=== PATIENT | female | born 2000 | race Hispanic/Latino ===

== ENCOUNTER 2019-02-08 13:40 | Emergency (ER) | payer OTHER, SELFPAY ==
[2019-02-08 14:04] LABS: #Eosinphils 0.1 thou/uL (0.0-0.7); #Lymphocytes 1.6 thou/uL (1.20-3.40); #Monocytes 0.5 thou/uL (0.11-0.59); #Neutrophils 6.4 thou/uL (1.40-6.50); %Basophils 0.2 % (0.0-1.0); %Eosinophils 0.8 % (0.0-10.0); %Lymphocytes 18.3 % (28.0-48.0); %Monocytes 5.9 % (0.0-4.0); %Neutrophils 74.9 % (31.0-61.0); Hemoglobin 13.2 g/dL (12.0-16.0); Mean Corpuscular HGB CONC 33.7 g/dL (32.0-36.0); Mean Corpuscular Hemoglobin 30.3 pg (25.0-35.0); Mean Platelet Volume 9.8 fL (7.4-10.4); Platelet Count 220 thou/uL (130-400); RBC Distribution Width 11.5 % (11.5-14.5); Red Blood Cell (RBC) Count 4.35 mill/uL (4.00-5.20); White Blood Cell (WBC) Count 8.5 thou/uL (4.8-10.8)
[2019-02-08 14:24] LABS: Bilirubin Negative (Negative); Blood, Urine Moderate (Negative); Clarity CLOUDY (Clear); Glucose, Urine (Dipstick) Negative (Negative); Leukocyte Negative (Negative); Nitrite Negative (Negative); Protein, Urine (Dipstick) Negative (Neg-Trace); Specific Gravity, Urine 1.022 (1.002-1.036)
[2019-02-08 14:28] LABS: Pathc Cast-AUWi Flag 6.12 (0-2.49); Yeast-AUWi Flag 36.5 (0-25.0)
[2019-02-08 14:41] LABS: Bacteria/HPF 2+ HPF (None Seen); Hyaline Casts/LPF 0-3 HYALINE CAST LPF (0-3 Hyaline); Manual Microscopic Reviewed? No Path Casts Seen; Renal Epithelial None Seen HPF (0-3); Transitional Epithelial NONE SEEN HPF (0-3); Yeast-All Forms None Seen HPF (None Seen)
--- NOTE | 2019-02-08 15:57 | ULT ---
Exam: Pelvic ultrasound HISTORY: Vaginal bleeding for 5 days. Abdominal cramping. COMPARISON: None TECHNIQUE: Multiple grayscale and color Doppler images were obtained in a transabdominal pelvic ultra sound. Spectral analysis of the Doppler waveforms of the ovaries were performed. FINDINGS: CERVIX: Unremarkable UTERUS: Fluid collection is seen within the endometrial canal which contains a pole. Cardiac Do ppler demonstrates heart tones with a heart rate of 162 bpm. There is a curvilinear heterogeneous area seen in a subchorionic location in the lower uterine segment measuring 4.1 cm x 2. 8 cm x 0.9 cm suggesting a subchorionic hemorrhage. The crown-rump length measures 7.71 cm corresponding to gestational age by ultrasound of 13 weeks and 5 days with AILYN on 08/11/2019. Gestati onal age by last menstrual period is 13 weeks. No free fluid is present. RIGHT OVARY: Normal flow, without focal mass. LEFT OVARY:Not visualized. IMPRESSION: 1. Subchorionic hemorrhage with largest measurement of 4 cm. 2. Single intrauterine gestation with heart tones documented. Gestational age by measurement of the crown-rump length is 13 weeks and 5 days with AILYN on 08/11/2019. 3. Above findings discussed with SEPIDEH Adrian in the emergency department on 02/08/2019 1549 hour s.
== END 2019-02-08 16:11 | disposition home or self-care (01) ==
LOC: ERS 13:40
DX: O20.9 Hemorrhage in early pregnancy, unspecified (principal); O20.8 Other hemorrhage in early pregnancy; Z3A.13 13 weeks gestation of pregnancy
CPT/HCPCS: 36415; 76856; 81003; 81015; 84702; 85025; 86900; 86901; 93976

== ENCOUNTER 2019-02-24 19:56 | Emergency (ER) | payer OTHER ==
[2019-02-24 20:36] LABS: #Eosinphils 0.1 thou/uL (0.0-0.7); #Lymphocytes 1.8 thou/uL (1.20-3.40); #Monocytes 0.5 thou/uL (0.11-0.59); #Neutrophils 7.4 thou/uL (1.40-6.50); %Basophils 0.3 % (0.0-1.0); %Eosinophils 0.6 % (0.0-10.0); %Lymphocytes 18.4 % (28.0-48.0); %Monocytes 5.1 % (0.0-4.0); %Neutrophils 75.6 % (31.0-61.0); Hemoglobin 12.8 g/dL (12.0-16.0); Mean Corpuscular Hemoglobin 30.7 pg (25.0-35.0); Mean Corpuscular Volume 90.4 fL (78.0-98.0); Mean Platelet Volume 9.6 fL (7.4-10.4); Platelet Count 211 thou/uL (130-400); RBC Distribution Width 11.9 % (11.5-14.5); Red Blood Cell (RBC) Count 4.16 mill/uL (4.00-5.20); White Blood Cell (WBC) Count 9.8 thou/uL (4.8-10.8)
--- NOTE | 2019-02-24 20:54 | ULT ---
OB ULTRASOUND: 02/24/19 INDICATION: Vaginal bleeding. Single viable intrauterine . Gestational age by ultrasound is 16 weeks, 1 day. BPD 16 week, 3 day HC 16 week, 1 day AC 16 week, 3 day FL 15 week, 6 day heart rate 157. Position: Variable. Placenta: Anterior. Amniotic fluid: Within normal range. IMPRESSION: 16 week, 1 day gestation by ultrasound. No abnormality identified. POS: [facility]
[2019-02-24 20:59] LABS: Anion Gap 13 mmol/L (10-20); BUN (Urea Nitrogen) 6 mg/dL (7.0-18.7); Calc. Creatinine Clearance 0 mL/min (70-130); Calcium 9.3 mg/dL (7.8-10.44); Carbon Dioxide 21 mmol/L (22-29); Chloride 105 mmol/L (98-107); Estimated GFR-MDRD Greater than 90; Glucose 74 mg/dL (70-105); Potassium 3.7 mmol/L (3.5-5.1); Sodium 135 mmol/L (136-145)
== END 2019-02-24 21:26 | disposition home or self-care (01) ==
LOC: ERS 19:56
DX: O20.0 Threatened abortion (principal); Z3A.16 16 weeks gestation of pregnancy
CPT/HCPCS: 36415; 76815; 80048; 84702; 85025; 86900; 86901; 99284

== ENCOUNTER 2019-03-29 12:58 | Outpatient (CLI) | payer OTHER ==
--- NOTE | 2019-03-29 14:36 | ULT ---
OB ULTRASOUND: 03/29/19 HISTORY: Intrauterine gestation. Evaluate anatomy, size and dates and cervical length. COMPARISON: 02/24/19. FINDINGS: There is a single intrauterine gestation in breech presentation. Cardiac Doppler demonstrates h eart tones with a heart of 146 beats per minute. The placenta is located anteriorly without aashish dence of placenta previa. There is a normal amount of amniotic fluid with an amniotic fluid index of 16.04 cm. The cervical length on transabdominal imaging measures approximately 3.24 cm in length. BIOMETRY MEASUREMENTS: Biparietal diameter 4.68 cm 20 weeks, 2 days Head circumference 18.1 cm 20 weeks, 4 days Abdominal circumference 15.02 cm 20 weeks, 2 days Femur length 3.45 cm 21 weeks, 0 days The estimated gestational age by ultrasound is 20 weeks and 4 days with an AILYN of 08/12/19. The gesta tional age by the last menstrual period is 21 weeks and 1 day. The estimated weight by ultrasound is 359 grams (13 oz). This represents the 17th percentile fo r weight. The cerebellum is not well imaged due to positioning of the fetus but is grossly within normal limits . The visualized portions of the spine, four chambered heart, stomach, bilateral kidneys, urin soto bladder, and three vessel cord are visualized and demonstrate a normal sonographic appearance. Co rd insertion is not well delineated due to positioning, although no gross abnormality in the ex pected region of the cord insertion is seen. No definite anomalies are seen on the provided hallie ges. IMPRESSION: 1. Breech presentation of the fetus. 2. Single intrauterine gestation with heart tones documented. Estimated gestational age by ultrasound is 20 weeks and 4 days with AILYN on 08/12/19. 3. Estimated weight by ultrasound is 359 grams (13 oz). 4. Amniotic fluid index measures 16.04 cm. POS: [facility]
== END 2019-03-29 12:59 | disposition home or self-care (01) ==
LOC: BICULT 12:58
PROVIDERS: ATTEND Family Medicine
DX: Z34.82 Encounter for supervision of other normal pregnancy, second trimester (principal); Z3A.20 20 weeks gestation of pregnancy; O32.1XX0 Maternal care for breech presentation, not applicable or unspecified
CPT/HCPCS: 76805

== ENCOUNTER 2019-07-28 05:33 | Inpatient (IN) | payer OTHER ==
[2019-07-28] MEDS ORDERED: NS / Oxytocin 40 units/1000ml 1,000 ML ONE (05:47)
[2019-07-28] MEDS ORDERED: Lidocaine 1% (PF) 30 ML VIAL ONE (05:48)
[2019-07-28] MEDS ORDERED: Oxytocin 10 UNITS/ML VIAL ONE (05:51)
[2019-07-28 06:15] VITALS: BMI 23.8
[2019-07-28] MEDS ORDERED: Misoprostol 200 MCG TAB PR PRN (06:43)
[2019-07-28] MEDS ORDERED: Promethazine HCl 25 MG/ML VIAL IM PRN (06:43)
[2019-07-28] MEDS ORDERED: Carboprost 250 MCG/ML AMP IM PRN (06:43)
[2019-07-28] MEDS ORDERED: NS / Oxytocin 40 units/1000ml 1,000 ML IV PRN (06:43)
[2019-07-28] MEDS ORDERED: Lidocaine 1% (PF) 30 ML VIAL SC PRN (06:43)
[2019-07-28] MEDS ORDERED: hydrALAZINE 20 MG/ML VIAL SLOW IVP PRN ×2 (06:43→07:13)
[2019-07-28] MEDS ORDERED: Ondansetron PF 4 MG/2 ML Vial IVP PRN (06:43)
[2019-07-28] MEDS ORDERED: Methylergonovine 0.2 MG/ML VIAL IM PRN (06:43)
[2019-07-28] MEDS ORDERED: Ibuprofen 800 MG TAB PO PRN (06:43)
[2019-07-28] MEDS ORDERED: Butorphanol Tartrate 1 MG/ML VIAL SLOW IVP PRN (06:43)
[2019-07-28] MEDS ORDERED: Diphenoxylate HCl/Atropine Tablet PO PRN (06:43)
[2019-07-28] MEDS ORDERED: HYDROcodone/Acetaminophen 5/325 mg Tablet PO PRN ×3 (06:43→07:13)
[2019-07-28] MEDS ORDERED: Lactated Ringer's 1,000 ML IV SCH (06:45)
[2019-07-28] MEDS ORDERED: Bisacodyl 10 MG SUPP PR PRN (07:13)
[2019-07-28] MEDS ORDERED: Adacel (T-DAP) 0.5 ML SYRINGE IM ONE (07:13)
[2019-07-28] MEDS ORDERED: Lanolin Ointment 7 GM TUBE TOP PRN (07:13)
[2019-07-28] MEDS ORDERED: Milk Of Magnesia 30 ML UDCUP PO PRN (07:13)
[2019-07-28] MEDS ORDERED: NS / Oxytocin 40 units/1000ml 1,000 ML IV SCH (07:13)
[2019-07-28 09:12] LABS: Hemoglobin 9.7 g/dL (12.0-16.0); Mean Corpuscular HGB CONC 32.7 g/dL (32.0-36.0); Mean Corpuscular Hemoglobin 24.7 pg (25.0-35.0); Mean Corpuscular Volume 75.6 fL (78.0-98.0); Mean Platelet Volume 10.5 fL (7.4-10.4); Platelet Count 163 thou/uL (130-400); RBC Distribution Width 15.8 % (11.5-14.5); White Blood Cell (WBC) Count 16.1 thou/uL (4.8-10.8)
[2019-07-28 09:50] LABS: Syphilis Antibody Nonreactive (Nonreactive); Syphilis Antibody Index 0.02 S/CO (<1.00 Non-Reactive)
[2019-07-28 09:51] LABS: Hep B Surf Ag Non-Reactive S/CO (NonReactive)
[2019-07-28] MEDS: Prenatal Vitamin 1 TAB PO SCH (12:24)
[2019-07-28] MEDS: Docusate Calcium (SURFAK) 240 MG CAP PO SCH ×2 (12:24→21:27)
[2019-07-28] MEDS: Ferrous Sulfate 325 MG TAB PO SCH ×2 (12:24→17:30)
[2019-07-28] MEDS: Ibuprofen 800 MG TAB PO SCH ×2 (15:11→21:27)
[2019-07-29] MEDS: Ibuprofen 800 MG TAB PO SCH ×2 (05:33→13:35)
[2019-07-29 06:01] LABS: Hemoglobin 9.9 g/dL (12.0-16.0); Mean Corpuscular HGB CONC 32.9 g/dL (32.0-36.0); Mean Corpuscular Hemoglobin 25.1 pg (25.0-35.0); Mean Corpuscular Volume 76.1 fL (78.0-98.0); Mean Platelet Volume 12.4 fL (7.4-10.4); Platelet Count 182 thou/uL (130-400); RBC Distribution Width 15.8 % (11.5-14.5); Red Blood Cell (RBC) Count 3.93 mill/uL (4.00-5.20); White Blood Cell (WBC) Count 10.6 thou/uL (4.8-10.8)
[2019-07-29] MEDS: Docusate Calcium (SURFAK) 240 MG CAP PO SCH (09:26)
[2019-07-29] MEDS: Ferrous Sulfate 325 MG TAB PO SCH (09:26)
[2019-07-29] MEDS: Prenatal Vitamin 1 TAB PO SCH (09:26)
[2019-07-29 11:20] VITALS: BP 121/80; TEMP 97.7
== END 2019-07-29 18:31 | disposition home or self-care (01) | DRG 807 ==
LOC: L&D/OP 05:33 → L&D 06:44 → 3SW 09:16
PROVIDERS: ADMIT Family Medicine; ATTEND Family Medicine
PROC: 10E0XZZ Delivery of Products of Conception, External Approach (ICD-10-PCS; principal; 2019-07-28)
DX: O76 Abnormality in fetal heart rate and rhythm complicating labor and delivery (principal); Z37.0 Single live birth; Z3A.38 38 weeks gestation of pregnancy
CPT/HCPCS: 36415; 85027; 86780; 86850; 86900; 86901; 87340; 99285; J2001; J2590

== ENCOUNTER 2020-08-30 23:15 | Inpatient (IN) | payer SELFPAY ==
[2020-08-31] MEDS ORDERED: Mag-Al 1200 mg/1200 mg/30 ML UDCUP ONE (00:04)
[2020-08-31] MEDS ORDERED: Lidocaine Viscous Sol 2% 15 ml UD Cup ONE (00:04)
[2020-08-31 00:19] LABS: MONO NEGATIVE CONTROL ZONE White (Negative) (White); MONO POSITIVE CONTROL Pink Line (Positive) (PINK/RED); Mononucleosis NEGATIVE (NEGATIVE)
[2020-08-31] MEDS ORDERED: Dextrose 5 % And 0.9 % NaCl 1,000 ML IV SCH (03:45)
[2020-08-31] MEDS ORDERED: Acetaminophen 325 MG TAB PO PRN (03:45)
[2020-08-31 04:06] VITALS: BMI 25.4
[2020-08-31] MEDS ORDERED: Ondansetron ODT 4 MG TAB PO PRN (04:06)
[2020-08-31] MEDS ORDERED: Ondansetron PF 4 MG/2 ML Vial IVP PRN (04:06)
[2020-08-31] MEDS: Ketorolac Tromethamine 30 MG/ML VIAL IVP PRN ×2 (04:23→21:11)
[2020-08-31] MEDS: Sodium Chloride 0.9% 1,000 ML IV SCH ×3 (04:25→22:23)
[2020-08-31] MEDS ORDERED: cefTRIAXone\\ROCEPHIN 1 GM in Sodium Chloride 0.9% 100 ML IVPB SCH (05:00)
[2020-08-31 05:05] LABS: #Lymphocytes 0.7 thou/uL (1.20-3.40); #Monocytes 0.5 thou/uL (0.11-0.59); #Neutrophils 6.7 thou/uL (1.40-6.50); %Eosinophils 0.1 % (0.0-10.0); %Lymphocytes 8.4 % (21.0-51.0); %Monocytes 6.3 % (0.0-10.0); %Neutrophils 85.3 % (42.0-75.0); Hemoglobin 11.5 g/dL (12.0-16.0); Mean Corpuscular HGB CONC 33.7 g/dL (32.0-36.0); Mean Corpuscular Hemoglobin 30.5 pg (27.0-31.0); Mean Corpuscular Volume 90.5 fL (78.0-98.0); Mean Platelet Volume 9.8 fL (7.4-10.4); Platelet Count 121 thou/uL (130-400); RBC Distribution Width 12.1 % (11.5-14.5); Red Blood Cell (RBC) Count 3.77 mill/uL (4.20-5.40); White Blood Cell (WBC) Count 7.9 thou/uL (4.8-10.8)
[2020-08-31] MEDS: Vancomycin 1 GM in Premix Bag 1 BAG IVPB SCH ×3 (05:13→21:10)
--- NOTE | 2020-08-31 05:21 | HP ---
PRIMARY CARE PROVIDER: [facility]. CHIEF COMPLAINT: Fever and general body aches. HISTORY OF PRESENT ILLNESS: This is a 19-year-old female, who presents to [facility] complaining of fever up to 104.9 degrees at home. The patient had noticed increased symptoms over the last 3 to 4 days with some sore throat, cough, nasal congestion as well as abdominal discomfort. The patient denied any known sick contacts, recent travel history, or trauma. The patient did not take any specific home remedies to alleviate her symptoms. In the emergency room, the patient underwent general evaluation and was noted with a fever of [address] of the abdomen and pelvis performed showing evidence of left-sided pyelonephritis. The patient received IV vancomycin, azithromycin and Rocephin in the emergency room in addition to intravenous normal saline, Motrin, and Zofran. The patient did meet sepsis criteria and was transferred from the [facility] [facility] to [facility]. PAST MEDICAL HISTORY: Reviewed and negative. PAST SURGICAL HISTORY: Reviewed and negative. CURRENT MEDICATIONS: Reviewed and negative. ALLERGIES: NO KNOWN DRUG ALLERGIES. FAMILY HISTORY: No inheritable diseases per patient report. SOCIAL HISTORY: Resides in [place], [place]. Unemployed. No current alcohol, tobacco, or illicit drug use. Functional of all activities of daily living. REVIEW OF SYSTEMS: CONSTITUTIONAL: Negative for weight loss or gain, ability to conduct usual activities. SKIN: Negative for rash, itching. EYES: Negative for double vision, pain. ENT/MOUTH: Negative for nose bleeding, neck stiffness, pain, tenderness. CARDIOVASCULAR: Negative for palpitations, dyspnea on exertion, orthopnea. RESPIRATORY: Negative for shortness of breath, wheezing, cough, hemoptysis, fever or night sweats. GASTROINTESTINAL: Negative for poor appetite, abdominal pain, heartburn, nausea, vomiting, constipation, or diarrhea. GENITOURINARY: Negative for urgency, frequency, dysuria, nocturia. MUSCULOSKELETAL: Negative for pain, swelling. NEUROLOGIC/PSYCHIATRIC: Negative for anxiety, depression. ALLERGY/IMMUNOLOGIC: Negative for skin rash, bleeding tendency. Otherwise negative except as stated per HPI. PHYSICAL EXAMINATION: VITAL SIGNS: On admission, blood pressure 139/89, pulse 154, respiratory rate 26, temperature 104.8 degrees Fahrenheit, O2 saturation 98% on room air. GENERAL APPEARANCE: This is a 19-year-old female, alert and oriented x3, pleasant, responsive, in mild distress. HEENT: Pupils are equal, round, reactive to light and accommodation. Extraocular muscles are intact. No scleral icterus. No conjunctival injection. Nares patent. OP is clear. Oral mucosa dry. NECK: Supple. No cervical adenopathy. No thyromegaly. No carotid bruits. No JVD appreciated. Cervical spine with full active and passive range of motion. No meningeal signs noted. CHEST: Lungs are clear to auscultation bilaterally. CARDIOVASCULAR EXAM: S1, S2 with tachycardia. No murmur appreciated. ABDOMEN: Rounded with mild tenderness to palpation diffusely. No palpable mass. No rebound or guarding appreciated. Mild left CVA tenderness appreciated. EXTREMITIES: Warm and dry with fair turgor. No clubbing, cyanosis, or asymmetric edema appreciated. Pulses are palpable distally at the dorsalis pedis, posterior tibial, and popliteal arteries bilaterally. Capillary refill less than 2 seconds. NEUROLOGIC: Cranial nerves 2 through 12 are grossly intact. No focal or lateralizing signs appreciated. PERTINENT LABORATORY AND X-RAY FINDINGS: Sodium 137, potassium 2.8, chloride 107, CO2 of 16, BUN 7, creatinine 0.70, glucose 119. Lactic acid level 1.5, calcium 9.0. LFTs within normal limits. TSH 0.64. Serum beta-hCG negative, 08/30/2020. CBC showed a white blood cell count of 16.3, hemoglobin 13, hematocrit 40, and platelet count 214 with 86% neutrophils. Urinalysis dated 08/30/2020, showed positive protein, positive ketones, large blood, leukocyte esterase positive with urine microscopy showing 11 to 20 RBCs and WBCs per high-power field. 2+ bacteria. Urine drug screen dated 08/30/2020, negative. Plasma alcohol level less than 10. COVID-19 PCR not detected, 08/30/2020. Monospot screen, 08/31/2020 negative. Influenza A and B antigen, 08/31/2020 negative. Group A streptococcal throat screen dated 08/31/2020 negative. ASSESSMENT AND PLAN: 1. Sepsis secondarily to urinary tract infection/pyelonephritis. The patient will be admitted to the medical floor. We will continue aggressive fluid hydration per sepsis protocol. Continue Rocephin 2 g IV q.24 hours with additional vancomycin 1 g IV q.12 hours. Toradol 30 mg IV q.6 hours p.r.n. Continue aggressive fluid hydration and monitor for clinical response. Urine and blood cultures pending. 2. Hypokalemia. Continue potassium chloride supplementation and repeat potassium level in the a.m. 3. Abdominal pain. Suspect secondary to #1. Continue Toradol 30 mg IV q.6 hours p.r.n. 4. Prophylaxis. SCDs while in bed. Pepcid 20 mg p.o. b.i.d.. CODE STATUS: Full. Surrogate medical decision maker is Aston Silverio. Job ID: [id number]
[2020-08-31 05:25] LABS: Anion Gap 12 mmol/L (10-20); BUN (Urea Nitrogen) 6 mg/dL (7.0-18.7); Calc. Creatinine Clearance 148 mL/min (70-130); Calcium 7.2 mg/dL (7.8-10.44); Carbon Dioxide 15 mmol/L (22-29); Chloride 115 mmol/L (98-107); Glucose 109 mg/dL (70-105); Potassium 3.4 mmol/L (3.5-5.1); Sodium 139 mmol/L (136-145)
[2020-08-31] MEDS ORDERED: Vancomycin HCl 1 GM in Sodium Chloride 0.9% 250 ML 300 ML IVPB SCH (06:00)
[2020-08-31] MEDS ORDERED: FLU VACC QS2020-21(6MOS UP)/PF 60 MCG/0.5 ML SYRINGE IM ONE (09:00)
[2020-08-31] MEDS: cefTRIAXone\\ROCEPHIN 2 GM in Sodium Chloride 0.9% 100 ML IVPB SCH (11:05)
[2020-08-31] MEDS: Famotidine 20 MG TAB PO SCH ×2 (11:06→21:10)
[2020-08-31] MEDS: Acetaminophen 500 MG TAB PO PRN ×2 (15:00→22:22)
[2020-08-31 21:16] LABS: Vancomycin, Trough 12.2 ug/mL
[2020-09-01 05:19] LABS: #Lymphocytes 1.1 thou/uL (1.20-3.40); #Monocytes 0.6 thou/uL (0.11-0.59); %Basophils 0.4 % (0.0-1.0); %Eosinophils 0.1 % (0.0-10.0); %Lymphocytes 12.2 % (21.0-51.0); %Neutrophils 80.3 % (42.0-75.0); Hemoglobin 10.3 g/dL (12.0-16.0); Mean Corpuscular HGB CONC 33.4 g/dL (32.0-36.0); Mean Corpuscular Hemoglobin 30.6 pg (27.0-31.0); Mean Corpuscular Volume 91.6 fL (78.0-98.0); Mean Platelet Volume 10.3 fL (7.4-10.4); Platelet Count 149 thou/uL (130-400); RBC Distribution Width 12.4 % (11.5-14.5); Red Blood Cell (RBC) Count 3.37 mill/uL (4.20-5.40); White Blood Cell (WBC) Count 8.7 thou/uL (4.8-10.8)
[2020-09-01 05:36] LABS: Anion Gap 15 mmol/L (10-20); BUN (Urea Nitrogen) 4 mg/dL (7.0-18.7); Calc. Creatinine Clearance 130 mL/min (70-130); Calcium 7.8 mg/dL (7.8-10.44); Carbon Dioxide 14 mmol/L (22-29); Chloride 112 mmol/L (98-107); Glucose 99 mg/dL (70-105); Sodium 138 mmol/L (136-145); Vancomycin, Trough 11.7 ug/mL
[2020-09-01 05:50] LABS: Potassium 2.9 mmol/L (3.5-5.1)
[2020-09-01] MEDS ORDERED: Potassium Chloride 20 MEQ TAB PO SCH (06:15)
[2020-09-01] MEDS: Sodium Chloride 0.9% 1,000 ML IV SCH (06:33)
[2020-09-01] MEDS: Vancomycin HCl 1.25 GM in Sodium Chloride 0.9% 250 ML 250 ML IVPB SCH ×2 (06:37→17:01)
[2020-09-01] MEDS ORDERED: NS 0.9% w/ 40 MEQ KCL 1,000 ML IV SCH (08:15)
[2020-09-01] MEDS: Famotidine 20 MG TAB PO SCH ×2 (09:03→20:35)
[2020-09-01] MEDS: Potassium Chloride 20 MEQ TAB PO SCH ×2 (09:03→20:35)
[2020-09-01] MEDS: cefTRIAXone\\ROCEPHIN 2 GM in Sodium Chloride 0.9% 100 ML IVPB SCH (09:03)
[2020-09-01] MEDS: Ketorolac Tromethamine 30 MG/ML VIAL IVP PRN (09:11)
[2020-09-01 10:17] LABS: Magnesium 1.8 mg/dL (1.6-2.6)
[2020-09-01 10:22] LABS: Phosphorus 1.2 mg/dL (2.3-4.7)
[2020-09-01] MEDS ORDERED: Potassium Phosphate 15 MMOL in Sodium Chloride 0.9% 250 ML 250 ML IVPB SCH (10:30)
[2020-09-01] MEDS ORDERED: Magnesium Sulfate 2 GM in Sodium Chloride 0.9% 100 ML IVPB SCH (10:30)
[2020-09-01] MEDS ORDERED: Magnesium 2 GM/50 ML 2 GM in Premix Bag 1 BAG IVPB SCH (11:00)
[2020-09-01] MEDS: NS 0.9% w/ 20 MEQ KCL 1,000 ML/1,000 ML BAG IV SCH (14:05)
--- NOTE | 2020-09-01 17:39 | PDOC.HOSPP ---
- Subjective Encounter Date: 09/01/20 Encounter Time: 14:30 Subjective: Patient seen and examined for sepsis due to pyelonephritis. Poor appetite. Continues to have flank pain. Denies any dysuria, hematuria or fever. - Objective Vital Signs & Weight: Vital Signs (12 hours) Temp Pulse Resp BP Pulse Ox 09/01/20 15:50 99.7 F H 104 H 16 118/81 100 09/01/20 11:40 98.4 F 89 18 112/79 98 09/01/20 08:50 97 09/01/20 07:30 98.2 F 107 H 18 124/83 97 Weight Admit Weight 134 lb 11.2 oz Weight 134 lb 11.2 oz I&O: 08/31/20 09/01/20 09/02/20 06:59 06:59 06:59 Intake Total 950 4850 240 Balance 950 4850 240 Result Diagrams: 09/01/20 05:02 09/01/20 05:02 Additional Labs: Abnormal Lab Results - Last 48 hrs 08/31/20 04:37: Potassium 3.4 L, Chloride 115 H, Carbon Dioxide 15 L, BUN 6 L, Creatinine 0.58 L, Calcium 7.2 L 08/31/20 04:37: RBC 3.77 L, Hgb 11.5 L, Hct 34.2 L, Plt Count 121 L, Neutrophils % 85.3 H, Lymphocytes % 8.4 L, Neutrophils # 6.7 H, Lymphocytes # 0.7 L 08/31/20 04:37: Lactic Acid 2.6 H 09/01/20 05:02: Potassium 2.9 L*, Chloride 112 H, Carbon Dioxide 14 L, BUN 4 L 09/01/20 05:02: RBC 3.37 L, Hgb 10.3 L, Hct 30.9 L, Neutrophils % 80.3 H, Lymphocytes % 12.2 L, Neutrophils # 7.0 H, Lymphocytes # 1.1 L, Monocytes # 0.6 H 09/01/20 09:36: Phosphorus 1.2 L Microbiology - Entire Visit 08/31/20 00:33 Throat - Pending Group A Streptococcus Culture - Final 08/31/20 00:14 Nasal swab Influenza Types A,B Direct EIA - Final 08/31/20 00:14 Throat - Pending Group A Streptococcus Screen (ARNULFO) - Final Radiology Reviewed by me: Yes (CT abdomenleft-sided pyelonephritis) Hospitalist ROS - Review of Systems Respiratory: denies: cough, dry, shortness of breath, hemoptysis, SOB with excertion, pleuritic pain, sputum, wheezing, other Cardiovascular: denies: chest pain, palpitations, orthopnea, paroxysmal noc. dyspnea, edema, light headedness, other - Medication Medications: Active Medications Generic Name Dose Route Start Last Admin Trade Name Freq PRN Reason Stop Dose Admin Acetaminophen 1,000 mg 08/31/20 04:06 08/31/20 22:22 Acetaminophen 500 Mg Tab PO 1,000 mg Q6H PRN Administration Mild Pain (1-3) Famotidine 20 mg 08/31/20 09:00 09/01/20 09:03 Famotidine 20 Mg Tab PO 20 mg BID AKIN Administration Ceftriaxone Sodium 2 gm/ 100 mls @ 200 mls/hr 08/31/20 09:00 09/01/20 09:03 Sodium Chloride IVPB 100 mls 0900 AKIN Administration Vancomycin HCl 1.25 gm/ Sodium 250 mls @ 166.667 mls/hr 09/01/20 06:00 09/01/20 17:01 Chloride IVPB Not Given Q8HR AKIN Potassium Chloride/Sodium Chloride 1,000 ml in 1,000 mls @ 100 mls/hr 09/01/20 13:15 09/01/20 14:05 Ns 0.9% W/ 20 Meq Kcl IV 1,000 mls .Q10H AKIN Administration Ketorolac Tromethamine 30 mg 08/31/20 04:06 09/01/20 09:11 Ketorolac Tromethamine 30 Mg/Ml Vial IVP 09/05/20 04:07 30 mg Q6H PRN Administration Pain Potassium Chloride 40 meq 09/01/20 09:00 09/01/20 09:03 Potassium Chloride 20 Meq Tab PO 40 meq BID AKIN Administration Sodium Chloride 10 ml 09/01/20 09:00 09/01/20 09:04 Flush - Normal Saline 10 Ml Syringe IVF Not Given Q12HR AKIN - Exam General Appearance: ill appearing Neck: supple, no JVD Heart: RRR, no gallops, no rubs, normal peripheral pulses Respiratory: no wheezes, no rales, no ronchi, normal chest expansion Gastrointestinal: soft, normal bowel sounds, no guarding, no rigidity, tender to palpation (In the left flank) Extremities: no cyanosis, no clubbing, no edema Extremities - other findings: No calf tenderness Neurological: no new deficit Psychiatric: normal affect, A&O x 3 Hosp A/P - Plan DVT proph w/SCDs Sepsis due to left-sided pyelonephritis Generalized weakness with fever due to above Hypokalemia/hypomagnesemia/hypophosphatemia Metabolic acidosis/lactic acidosis Anemia probably due to nutritional deficiency Thrombocytopenia Plan: Replace potassium/magnesium and phosphorus. Continue IV fluidsreduce rate. Discontinue vancomycin. Continue pain control. A.m. labs. Continue other medications as above
[2020-09-01] MEDS ORDERED: Ketorolac Tromethamine 30 MG/ML VIAL IVP PRN (17:44)
[2020-09-01] MEDS: K-Phos Neutral 250 MG TAB PO SCH (17:53)
[2020-09-01 17:59] LABS: Potassium 3.5 mmol/L (3.5-5.1)
[2020-09-01] MEDS: Ibuprofen 200 MG TAB PO PRN (18:06)
[2020-09-02] MEDS: NS 0.9% w/ 20 MEQ KCL 1,000 ML/1,000 ML BAG IV SCH (04:00)
[2020-09-02 05:20] LABS: #Monocytes 0.3 thou/uL (0.11-0.59); #Neutrophils 2.5 thou/uL (1.40-6.50); %Basophils 0.1 % (0.0-1.0); %Eosinophils 0.1 % (0.0-10.0); %Lymphocytes 26.4 % (21.0-51.0); %Monocytes 8.9 % (0.0-10.0); %Neutrophils 64.5 % (42.0-75.0); Mean Corpuscular HGB CONC 33.2 g/dL (32.0-36.0); Mean Corpuscular Hemoglobin 29.8 pg (27.0-31.0); Mean Corpuscular Volume 89.5 fL (78.0-98.0); Mean Platelet Volume 9.4 fL (7.4-10.4); Platelet Count 154 thou/uL (130-400); RBC Distribution Width 12.4 % (11.5-14.5); Red Blood Cell (RBC) Count 3.01 mill/uL (4.20-5.40); White Blood Cell (WBC) Count 3.9 thou/uL (4.8-10.8)
[2020-09-02 05:49] LABS: ALT (SGPT) 30 U/L (8-55); AST (SGOT) 40 U/L (5-34); Albumin 2.8 g/dL (3.5-5.0); Alkaline Phosphatase 97 U/L (40-110); Anion Gap 14 mmol/L (10-20); BUN (Urea Nitrogen) 5 mg/dL (7.0-18.7); Bilirubin, Total 0.2 mg/dL (0.2-1.2); Calc. Creatinine Clearance 148 mL/min (70-130); Calcium 7.3 mg/dL (7.8-10.44); Carbon Dioxide 16 mmol/L (22-29); Chloride 114 mmol/L (98-107); Globulin 2.7 g/dL (2.4-3.5); Glucose 109 mg/dL (70-105); Magnesium 1.9 mg/dL (1.6-2.6); Potassium 3.7 mmol/L (3.5-5.1); Protein, Total 5.5 g/dL (6.0-8.3); Sodium 140 mmol/L (136-145)
[2020-09-02 05:55] LABS: Phosphorus 1.8 mg/dL (2.3-4.7)
[2020-09-02] MEDS ORDERED: 1/2 NS w/KCL 20 mEq 1,000 ML IV SCH (08:15)
[2020-09-02] MEDS ORDERED: diphenhydrAMINE 25 MG CAP PO PRN (08:29)
[2020-09-02] MEDS: Saccharomyces boulardii 250 MG CAP PO SCH (08:31)
[2020-09-02] MEDS: cefTRIAXone\\ROCEPHIN 2 GM in Sodium Chloride 0.9% 100 ML IVPB SCH (08:31)
[2020-09-02] MEDS: Multivit, Therapeutic 1 TAB PO SCH (08:32)
[2020-09-02] MEDS: K-Phos Neutral 250 MG TAB PO SCH ×3 (08:32→17:33)
[2020-09-02] MEDS: Famotidine 20 MG TAB PO SCH ×2 (08:32→20:56)
[2020-09-02] MEDS: Acetaminophen 500 MG TAB PO PRN ×2 (09:30→20:56)
[2020-09-02] MEDS: Ibuprofen 200 MG TAB PO PRN (11:43)
--- NOTE | 2020-09-02 17:27 | PDOC.HOSPP ---
- Subjective Encounter Date: 09/02/20 Encounter Time: 09:30 Subjective: Patient seen and examined for sepsis due to pyelonephritis. Continues to have flank pain. Feels generally weak and fatigue. Poor appetite. Denies any fever or chills. No nausea, vomiting or abdominal pain. - Objective Vital Signs & Weight: Vital Signs (12 hours) Temp Pulse Resp BP Pulse Ox 09/02/20 12:24 98.0 F 75 16 125/85 92 L 09/02/20 08:22 98.2 F 91 16 130/88 97 09/02/20 08:00 97 Weight Admit Weight 134 lb 11.2 oz Weight 134 lb 11.2 oz I&O: 09/01/20 09/02/20 09/03/20 06:59 06:59 06:59 Intake Total 4850 2180 Balance 4850 2180 Result Diagrams: 09/02/20 04:58 09/02/20 04:58 Radiology Reviewed by me: Yes (CT abdomen reviewed) Hospitalist ROS - Review of Systems Respiratory: denies: cough, dry, shortness of breath, hemoptysis, SOB with excertion, pleuritic pain, sputum, wheezing, other Cardiovascular: denies: chest pain, palpitations, orthopnea, paroxysmal noc. dyspnea, edema, light headedness, other - Medication Medications: Active Medications Generic Name Dose Route Start Last Admin Trade Name Freq PRN Reason Stop Dose Admin Acetaminophen 1,000 mg 08/31/20 04:06 09/02/20 09:30 Acetaminophen 500 Mg Tab PO 1,000 mg Q6H PRN Administration Mild Pain (1-3) Famotidine 20 mg 08/31/20 09:00 09/02/20 08:32 Famotidine 20 Mg Tab PO 20 mg BID AKIN Administration Ceftriaxone Sodium 2 gm/ 100 mls @ 200 mls/hr 08/31/20 09:00 09/02/20 08:31 Sodium Chloride IVPB 100 mls 0900 AKIN Administration Ibuprofen 400 mg 08/31/20 04:06 09/02/20 11:43 Ibuprofen 200 Mg Tab PO 400 mg Q4H PRN Administration Fever > 101 Multivitamins 1 tab 09/02/20 09:00 09/02/20 08:32 Multivit, Therapeutic 1 Tab PO 1 tab DAILY AKNI Administration Phosphorus 250 mg 09/01/20 17:00 09/02/20 11:36 K-Phos Neutral 250 Mg Tab PO 250 mg TID-WM AKIN Administration Saccharomyces Boulardii 250 mg 09/02/20 09:00 09/02/20 08:31 Saccharomyces Boulardii 250 Mg Cap PO 250 mg DAILY AKIN Administration Sodium Chloride 10 ml 09/01/20 09:00 09/02/20 08:38 Flush - Normal Saline 10 Ml Syringe IVF Not Given Q12HR AKIN - Exam General Appearance: ill appearing Neck: supple, no JVD Heart: RRR, no gallops Respiratory: no wheezes, no ronchi Gastrointestinal: soft, normal bowel sounds, no guarding, no rigidity Gastrointestinal - other findings: Left flank tenderness Extremities: no cyanosis, no clubbing Neurological: no new deficit Hosp A/P - Plan DVT proph w/SCDs Sepsis due to left-sided pyelonephritis Generalized weakness with fever due to above Hypokalemia/hypomagnesemia/hypophosphatemia Metabolic acidosis/lactic acidosis Anemia probably due to nutritional deficiency Thrombocytopenia Plan: Urine culture positive for E. coli. Will continue ceftriaxone. Blood cultures negative. Discontinue IV fluids if tolerating p.o. well. Left side shift improving. Thrombocytopenia resolved. Replace phosphorus and potassium. Continue other medications as above. Had a low-grade temperature of 99.7 yesterday afternoon. Will DC home in 1 to 2 days if patient remains afebrile.
[2020-09-03] MEDS: Acetaminophen 500 MG TAB PO PRN (05:32)
[2020-09-03] MEDS: Saccharomyces boulardii 250 MG CAP PO SCH (09:00)
[2020-09-03] MEDS: cefTRIAXone\\ROCEPHIN 2 GM in Sodium Chloride 0.9% 100 ML IVPB SCH (09:00)
[2020-09-03] MEDS: Famotidine 20 MG TAB PO SCH (09:00)
[2020-09-03] MEDS: K-Phos Neutral 250 MG TAB PO SCH ×2 (09:01→12:09)
[2020-09-03] MEDS: Multivit, Therapeutic 1 TAB PO SCH (09:01)
[2020-09-03 12:17] VITALS: BP 122/85; TEMP 97.5
--- NOTE | 2020-09-03 17:46 | PDOC.DS.DS ---
Provider - Provider Date of Admission: 08/31/20 01:30 Date of Discharge: 09/03/20 Admitting Provider: Shukri Bee DO Consultations: None Primary Care Physician: Jacob King MD Course - Hospital Course Hospital Course: Patient is a 19-year-old female who presented to the emergency room with fever along with generalized body aches of 3 to 4 days duration. Her maximum temperature in the emergency room was 104 F along with left-sided shift. CT scan in the emergency room was consistent with left-sided pyelonephritis. Patient was started on broad-spectrum antibiotics. She was monitored on the medical floor. She has been afebrile over the past 2 to 3 days. Urine culture was consistent with E. coli sensitive to quinolones and cephalosporins. Symptomatically she feels much better and appears stable for discharge. Antibiotics have been transitioned to ciprofloxacin. Side effects of medication discussed with the patient. Final diagnosis: Sepsis due to left-sided pyelonephritis Generalized weakness with fever due to above Hypokalemia/hypomagnesemia/hypophosphatemia Metabolic acidosis/lactic acidosis Anemia probably due to nutritional deficiency Thrombocytopenia Resuscitation Status: 08/31/20 03:59 Resuscitation Status Routine Resuscitation Status: FULL: Full Resuscitation - Labs Lab Results: 09/02/20 04:58 09/02/20 04:58 Abnormal Lab Results - Last 48 hrs 09/02/20 04:58: Chloride 114 H, Carbon Dioxide 16 L, BUN 5 L, Creatinine 0.58 L, Calcium 7.3 L, AST 40 H, Serum Total Protein 5.5 L, Albumin 2.8 L, Albumin/Globulin Ratio 1.0 L 09/02/20 04:58: Phosphorus 1.8 L 09/02/20 04:58: WBC 3.9 L, RBC 3.01 L, Hgb 9.0 L, Hct 26.9 L, Lymphocytes # 1.0 L Microbiology - Entire Visit 08/31/20 00:33 Throat - Pending Group A Streptococcus Culture - Final 08/31/20 00:14 Nasal swab Influenza Types A,B Direct EIA - Final 08/31/20 00:14 Throat - Pending Group A Streptococcus Screen (ARNULFO) - Final - Physical Exam Vitals: Vital Signs (12 hours) Temp Pulse Resp BP BP Pulse Ox 09/03/20 12:10 97.5 F L 75 16 122/85 98 09/03/20 09:00 98 09/03/20 08:00 98.2 F 78 14 123/81 98 Weight Admit Weight 134 lb 11.2 oz Weight 134 lb 11.2 oz Physical Exam: The patient was seen and examined on the day of discharge. Plan - Discharge Medications Prescriptions: Ciprofloxacin [Cipro] 500 mg PO BID #20 tab Saccharomyces boulardii [Florastor] 250 mg PO DAILY #30 cap Pantoprazole [Protonix] 40 mg PO DAILY #30 tab Home Medications: Medication Instructions Recorded Confirmed Type Acetaminophen [Tylenol] 650 mg PO Q4H PRN 08/31/20 08/31/20 History Ciprofloxacin [Cipro] 500 mg PO BID #20 tab 09/03/20 Rx Pantoprazole [Protonix] 40 mg PO DAILY #30 tab 09/03/20 Rx Saccharomyces boulardii [Florastor] 250 mg PO DAILY #30 cap 09/03/20 Rx Allergies: No Known Allergies Allergy (Verified 08/31/20 04:15) - Follow up Plan Referrals: [facility] [ Not on Staff] - 7 Days Disposition: HOME Quality - Care Measures CORE MEASURES:: N/A
== END 2020-09-03 13:33 | disposition home or self-care (01) | DRG 872 ==
LOC: ERS 23:15 → SURG A 08-31 01:30
PROVIDERS: ADMIT Family Medicine; ATTEND Internal Medicine
DX: A41.51 Sepsis due to Escherichia coli [E. coli] (principal); E87.2 Acidosis; N12 Tubulo-interstitial nephritis, not specified as acute or chronic; E87.6 Hypokalemia; E83.42 Hypomagnesemia; E83.39 Other disorders of phosphorus metabolism; D53.9 Nutritional anemia, unspecified; D69.6 Thrombocytopenia, unspecified; I95.9 Hypotension, unspecified
CPT/HCPCS: 36415; 80048; 80053; 80202; 83605; 83735; 84100; 85025; 86308; 87081; 87430; 87804; 99285; J0696; J1885; J3370; J3475; J3480; J3490; J7050

== ENCOUNTER 2024-03-17 07:00 | Outpatient (CLI) | payer MEDICAID | END 2024-03-17 07:01 | disposition home or self-care (01) | LOC: BICULT 07:00 | PROVIDERS: ATTEND Family Medicine | DX: O20.0 Threatened abortion (principal) | CPT/HCPCS: 76856 ==